=== PATIENT | male | born 1960 | race Caucasian/White ===

== ENCOUNTER 2020-09-25 17:29 | Emergency (ER) | payer OTHER ==
[~2020-09-25] VITALS: Ht 182.9 cm; Wt 81.7 kg
[~2020-09-25 17:29] MED LIST: Flagyl500 MG PO; Levaquin750 MG PO; Pepcid40 MG PO; ZESTORETIC 20-251 EA PO; Zofran8 MG PO
[2020-09-25] MEDS ORDERED: Cialis5 MG PO (18:24)
[2020-09-25] MEDS ORDERED: Prednisone20 MG PO (19:40)
[2020-09-25] MEDS ORDERED: EPIPEN0.3 MG/0.3 IM (19:40)
== END 2020-09-25 20:00 | disposition home or self-care (01) ==
LOC: ER 17:29
DX: T63.441A Toxic effect of venom of bees, accidental (unintentional), initial encounter (principal); Z88.0 Allergy status to penicillin; Z88.1 Allergy status to other antibiotic agents; Z79.899 Other long term (current) drug therapy; Z87.891 Personal history of nicotine dependence
CPT/HCPCS: 96372-59; 96374; 96375; 99284-25; J0171; J1200; J2930

== ENCOUNTER → 2022-04-28 | Outpatient (CLI) | payer OTHER ==
[~2022-04-28] MED LIST changes: +Cialis5 MG PO; +EPIPEN0.3 MG/0.3 IM; +Prednisone20 MG PO
== END | disposition home or self-care (01) ==
LOC: LAB SHORT 11:58 → PLD 11:58
DX: C44.311 Basal cell carcinoma of skin of nose (principal)
CPT/HCPCS: 88305

== ENCOUNTER 2022-05-28 15:53 | Emergency (ER) | payer OTHER ==
[~2022-05-28] VITALS: Ht 182.9 cm; Wt 83.9 kg
[2022-05-28 16:31] LABS: BASOPHILS ABSOLUTE AUTO 0.05 K/mm3 (0.00-0.23); BASOPHILS PERCENT AUTO 1 % (0-2); EOSINOPHILS ABSOLUTE AUTO 0.29 K/mm3 (0.00-0.68); EOSINOPHILS PERCENT AUTO 4 % (0-6); Hematocrit 48.1 % (37.0-53.0); Hemoglobin 15.9 g/dL (13.5-17.5); IMMATURE GRAN ABSOLUTE AUTO 0.04 K/mm3 (0.00-0.10); IMMATURE GRAN PERCENT AUTO 1 % (0-1); LYMPHOCYTES ABSOLUTE AUTO 1.49 K/mm3 (0.84-5.20); LYMPHOCYTES PERCENT AUTO 19 % (21-46); MONOCYTES ABSOLUTE AUTO 0.83 K/mm3 (0.16-1.47); MONOCYTES PERCENT AUTO 11 % (4-13); Mean Corpuscular HGB 30.3 pg (26.0-34.0); Mean Corpuscular HGB Conc 33.1 g/dL (31.5-36.5); Mean Corpuscular Volume 92 fL (80-100); Mean Platelet Volume 10.4 fL (9.1-12.4); NEUTROPHILS ABSOLUTE AUTO 5.04 K/mm3 (1.96-9.15); NEUTROPHILS PERCENT AUTO 65 % (41-73); Platelet Count 231 K/mm3 (150-400); RDW Coefficient Variation 12.2 % (11.7-14.2); RDW Standard Deviation 41.2 fL (35.1-46.3); Red Blood Cell Count 5.24 M/mm3 (4.30-5.90); White Blood Cell Count 7.74 K/mm3 (4.00-11.30)
[2022-05-28 16:56] LABS: Albumin, Blood 4.3 g/dL (3.4-5.0); Albumin/Globulin Ratio 1.4 (0.8-1.8); Bilirubin, Total 0.5 mg/dL (0.1-1.0); Calcium, Blood 9.5 mg/dL (8.5-10.1); Creatinine, Blood 1.19 mg/dL (0.60-1.20); Potassium, Blood 3.9 mmol/L (3.5-5.5); Total Protein, Blood 7.3 g/dL (6.4-8.2)
[2022-05-28] MEDS ORDERED: PRED20 PO (17:35)
[2022-05-28] MEDS ORDERED: FAMO40 PO (17:38)
[2022-05-29] MEDS ORDERED: LOSARTAN-HCTZ1 EACH PO (00:42)
== END 2022-05-28 17:55 | disposition home or self-care (01) ==
LOC: ER 15:53
PROVIDERS: Physician Assistant
DX: T78.3XXA Angioneurotic edema, initial encounter (principal); I10 Essential (primary) hypertension; Z88.0 Allergy status to penicillin; Z88.1 Allergy status to other antibiotic agents; Z88.8 Allergy status to other drugs, medicaments and biological substances; Z79.52 Long term (current) use of systemic steroids; Z79.899 Other long term (current) drug therapy; Z87.891 Personal history of nicotine dependence
CPT/HCPCS: 80053; 85025; A9270; J2930

== ENCOUNTER → 2022-10-22 | Outpatient (CLI) | payer OTHER ==
[~2022-10-22] MED LIST changes: +FAMO40 PO; +LOSARTAN-HCTZ1 EACH PO; +PRED20 PO
== END ==
LOC: LAB SHORT 18:25 → LAB 18:25
DX: K52.9 Noninfective gastroenteritis and colitis, unspecified (principal)
CPT/HCPCS: 87338

== ENCOUNTER 2023-01-19 09:27 | Day surgery (SDC) | payer OTHER ==
[~2023-01-19] VITALS: Ht 182 cm; Wt 84.0 kg
[2023-01-19] VITALS (19 sets, daily range): BP systolic 104–167; BP diastolic 56–106
[~2023-01-19 09:27] MED LIST changes: +AMLO10 PO
--- NOTE | 2023-01-19 10:43 | NUR ---
Ambulatory in Day Surgery History, Chart, Medications and Allergies reviewed before start of procedure.Patient confirms NPO status and agrees with scheduled surgery. Patient states colon prep results clear.Lungs clear T/O to Auscultation. Patient States Post-Procedure ride home has been arranged.
--- NOTE | 2023-01-19 11:06 | NUR ---
01/19/23 1106 Dallas Siu HISTORY, CHART, MEDICATIONS AND ALLERGIES REVIEWED BEFORE START OF PROCEDURE. PATIENT CONFIRMS NPO STATUS AND AGREES WITH SCHEDULED PROCEDURE. 3-LEAD EKG REVIEWED WITH PHYSICIAN PRIOR TO START OF PROCEDURE. MONITOR INTACT WITH CONTINUOUS PULSE OXIMETRY,CAPNOGRAPHY, 3-LEAD EKG, INTERMITTENT BP. SUPPLEMENTAL O2 TO BE TITRATED THROUGHOUT PROCEDURE TO MAINTAIN O2 SATURATION ABOVE 90%. PATIENT DETERMINED TO BE ASA APPROPRIATE FOR PROPOFOL SEDATION PRIOR TO START OF PROCEDURE BY
--- NOTE | 2023-01-19 12:12 | NUR ---
Discharge instructions reviewed with patient. Patient verbalizes understanding. Copy given to patient to take home. Patient States Post-Procedure ride home has been arranged.
== END 2023-01-19 12:10 | disposition home or self-care (01) ==
LOC: ORSCMMR 09:27 → ORD 10:30 → ORSCMMR 10:30
PROVIDERS: Internal Medicine Gastroenterology
PROC: 0DBK8ZX Excision of Ascending Colon, Via Natural or Artificial Opening Endoscopic, Diagnostic (ICD-10-PCS; principal; 2023-01-19 10:30)
PROC: 0DBL8ZX Excision of Transverse Colon, Via Natural or Artificial Opening Endoscopic, Diagnostic (ICD-10-PCS; principal; 2023-01-19 10:30)
PROC: 0DBP8ZX Excision of Rectum, Via Natural or Artificial Opening Endoscopic, Diagnostic (ICD-10-PCS; principal; 2023-01-19 10:30)
DX: R19.7 Diarrhea, unspecified (principal); R19.4 Change in bowel habit; D12.2 Benign neoplasm of ascending colon; D12.3 Benign neoplasm of transverse colon; D12.8 Benign neoplasm of rectum; Z86.010 Personal history of colon polyps; I10 Essential (primary) hypertension; Z79.899 Other long term (current) drug therapy; Z87.891 Personal history of nicotine dependence
CPT/HCPCS: 88305; J2704; J7120

== ENCOUNTER 2024-05-02 06:52 | Day surgery (SDC) | payer OTHER ==
[~2024-05-02] VITALS: Ht 177.8 cm; Wt 89.3 kg
[2024-05-02] VITALS (13 sets, daily range): BP systolic 107–172; BP diastolic 66–114
[~2024-05-02 06:52] MED LIST changes: +Lactated Ringer's 1,000 ML IV SCH; +propofoL 40 ML IV ONE
--- NOTE | 2024-05-02 07:13 | NUR ---
05/02/24 0713 Catalina Pearson CONFIRMED AND REVIEWED H&P, MEDCICATIONS, ALLERGIES, MEDICAL HISTORY, RESPIRATORY HISTORY, VITAL SIGNS, 3-LEAD EKG, CONSENTS, AND PHYSICIAN ORDERS. PATIENT CONFIRMS NPO STATUS AND AGREES WITH SCHEDULED PROCEDURE. MONITOR INTACT WITH CONTINUOUS PULSE OXIMETRY, CAPNOGRAPHY, 3-LEAD EKG, INTERMITTENT BP. SUPPLEMENTAL O2 TO BE TITRATED THROUGHOUT PROCEDURE TO MAINTAIN O2 SATURATION ABOVE 90%. PATIENT DETERMINED TO BE ASA APPROPRIATE FOR PROPOFOL SEDATION PRIOR TO START OF PROCEDURE BY DR. ROSENTHAL
[2024-05-02] MEDS ORDERED: XYOSTED50 MG/0.1 SQ (07:18)
--- NOTE | 2024-05-02 07:27 | NUR ---
Ambulatory in Day Surgery. History, Chart, Medications and Allergies reviewed before start of procedure. Lungs clear T/O to Auscultation. Patient confirms NPO status and agrees with scheduled surgery. Pre-Op teaching done. Pt verbalizes understanding. Patient States Post-Procedure ride home has been arranged.
--- NOTE | 2024-05-02 08:19 | NUR ---
Discharge instructions reviewed with patient. Patient verbalizes understanding. Copy given to patient to take home. Patient States Post-Procedure ride home has been arranged. Discharged via wheelchair to private car for ride home.
== END 2024-05-02 08:25 | disposition home or self-care (01) ==
LOC: ORSCMMR 06:52 → ORD 08:00 → ORSCMMR 08:25
PROVIDERS: Internal Medicine Gastroenterology
PROC: 0DBP8ZX Excision of Rectum, Via Natural or Artificial Opening Endoscopic, Diagnostic (ICD-10-PCS; principal; 2024-05-02 08:00)
PROC: 0DBK8ZX Excision of Ascending Colon, Via Natural or Artificial Opening Endoscopic, Diagnostic (ICD-10-PCS; principal; 2024-05-02 08:00)
DX: K62.5 Hemorrhage of anus and rectum (principal); K62.89 Other specified diseases of anus and rectum; Z86.0101 Personal history of adenomatous and serrated colon polyps; D12.4 Benign neoplasm of descending colon; K62.1 Rectal polyp; K62.4 Stenosis of anus and rectum; I10 Essential (primary) hypertension; Z87.891 Personal history of nicotine dependence; Z79.899 Other long term (current) drug therapy
CPT/HCPCS: 88305; J2704; J7120